=== PATIENT | female | born 1930 | race Caucasian/White ===

== ENCOUNTER → 2017-10-29 | Outpatient (CLI) | payer MEDICARE, BC ==
[~2017-10-29] MED LIST: AMLO2.5T74 PO; ASPI-1471 PO; ATOR10TA24 PO; ATOR10TA65 PO; AZIT500T47 PO; CALC-515 PO; CHOL100052 PO; DEN60I SUBQ; GUAI1CAP92 PO; LEVO50TA86 PO; LEVO75TA76 PO; LOR5 PO; OMEG-23 PO; TIMO5DRO3 OU; [UNRECOGNIZED DRUG - REMARK]
--- NOTE | 2017-10-29 11:26 | RADIOLOGY IMAGING REPORT ---
FACILITY[place] [facility] [place]IENT NAME: Kimberly Soto : 1930 MR: [id number] V: [id number] EXAM DATE: ORDERING PHYSICIAN: MART ORTIZ TECHNOLOGIST: Location: [facility] - [place] Patient: Kimberly Soto : 1930 Visit/Account:[id number] Date of Sevice: 10/29/2017 DEXA Scan Clinical history: Osteoporosis. Comparison: DEXA scan from 09/19/2009. LUMBAR SPINE: The bone mineral density (BMD) measured from L1-L4 correlates with a Z-score of -0.4 and a T-score of -2.7 which is osteoporosis as defined by the World Health Organization. The corresponding risk of f racture in the lumbar spine is 6-8 times increased compared with a young adult reference population. This value has increased by 3.5 % since the prior study. More than 5% change is considered signific ant. HIP: Bone mineral density (BMD) measured in the LEFT total hip region correlates with a Z-score -0.1 and a T-score of -2.7 which is osteoporosis as defined by the World Health Organization. The correspondin g risk of fracture in the hip is 6-8 times increased compared to a young adult reference population. This value has decrease by 8.7 % since the prior study. More than 5% change is considered significan t. T score left femoral neck -2.5 Bone mineral density (BMD) measured in the Femoral Neck region measures 0.685 g/cm?. IMPRESSION: 1. Lumbar spine: Osteoporosis. There has been 3.5% increase in the bone mineral density since the p revious exam. 2. Left Total Hip: Osteoporosis. There has been 8.7% decrease in the bone mineral density since the previous exam. 3. Femoral Neck: Bone Mineral Density is 0.685 g/cm? The next DEXA scan of this patient should include the following sites: L1-L4 and the left hip. FRAX? WHO Fracture Risk Assessment Tool link: <http://www.shef.ac.uk/FRAX/tool.jsp?locationValue=9> PLEASE NOTE: 1) The World Health Organization defines low BMD as follows: T-score Normal > -1 Osteopenia < -1 and > -2.5 Osteoporosis < -2.5 without fractures Established osteoporosis < -2.5 with fractures 2) In general, you may wish to consider: Diagnosis Treatment Follow-up DEXA Normal BMD Prevention 2-3 years Osteopenia Prevention/therapy 1-2 years Osteoporosis Therapy Yearly 3) Fracture risk estimated from the T-score is more accurate for vertebral fractures (often spontane ous) than for hip fractures. Report Dictated By: Karen Hart MD at 10/29/2017 11:19 AM Report E-Signed By: Karen Hart MD at 10/29/2017 11:22 AM WSN:[email or web address]
== END ==
LOC: RAD 00:34
PROVIDERS: ATTEND Emergency Medicine
DX: M81.0 Age-related osteoporosis without current pathological fracture (principal)
CPT/HCPCS: 77080

== ENCOUNTER → 2018-05-04 | Outpatient (CLI) | payer MEDICARE, BC ==
[~2018-05-04] MED LIST changes: +DONE5TAB74 PO
== END ==
LOC: LAB 10:33
PROVIDERS: ATTEND Emergency Medicine
DX: M81.0 Age-related osteoporosis without current pathological fracture (principal); F03.90 Unspecified dementia, unspecified severity, without behavioral disturbance, psychotic disturbance, mood disturbance, and anxiety
CPT/HCPCS: 36415; 82306; 82310; 82607; 83970